=== PATIENT | female | born 1980 | race Caucasian/White ===

== ENCOUNTER → 2017-09-23 | Outpatient (CLI) | payer BC ==
[~2017-09-23] MED LIST: ETONMIS VAGRING; ONDA4TAB10 SL; OXYC-737 PO
--- NOTE | 2017-09-24 13:52 | MAMMOGRAPHY REPORT ---
BILATERAL FIRST EVER DIGITAL DIAGNOSTIC MAMMOGRAM TOMOSYNTHESIS WITH CAD AND TARGETED BILATERAL ULTRA SOUND: 09/23/2017 CLINICAL HISTORY: 37-year-old woman presents for diagnostic workup in both breasts after bilateral br east masses were incidentally identified on a CT performed of the abdomen and pelvis for nephrolithia sis. TECHNIQUE: Bilateral CC and MLO 2D and tomosynthesis images were obtained. Current study was also ev aluated with a Computer Aided Detection (CAD) system. COMPARISON: No prior exams were available for comparison. BREAST COMPOSITION: The tissue of both breasts is heterogeneously dense, which may obscure small mass es. FINDINGS: There are at least 3 circumscribed, gently lobulated masses in the left breast and at least one gently lobulated and circumscribed right breast mass. There is no evidence of a suspicious spic ulated or irregular mass, focal area of architectural distortion or suspicious calcification. No foc al skin thickening or nipple retraction. The dominant mass is located in the upper outer posterior l eft breast, measuring 14 x 18 x 17 mm. Targeted ultrasound was performed in the left breast first and an area of palpable concern pointed ou t by the patient which she has noticed for approximately 2 years. This is in the 12:00 left breast, 10 cm from the nipple and there is a gently lobulated circumscribed parallel hypoechoic solid mass me asuring 20 x 9 x 16 mm. This likely correlates with the dominant mammographic mass and probably repr esents a benign fibroadenoma given reported 2 years of stability based on palpation by the patient. A smaller similar appearing lobulated and circumscribed parallel hypoechoic solid mass is identified in the 12:00 left breast, 5 cm from the nipple, measuring 4 x 3 x 6 mm. Another gently lobulated cir cumscribed hypoechoic solid mass measuring 12 x 7 x 8 mm is identified in the 5:00 left breast, 6 cm from the nipple. No other discrete solid or cystic mass is seen in the left breast. There is a gently lobulated and circumscribed hypoechoic solid-appearing mass in the 6:00 right breas t, 11 cm from the nipple measuring 8 x 5 x 5 mm. Another gently lobulated and circumscribed hypoecho ic solid mass in the 12:00 right breast, 5 cm from the nipple measures 8 x 7 x 10 mm. The visualized bilateral masses correspond with the masses identified on recent CT and most likely al l represent benign fibroadenomas. As the masses are all probably benign, would recommend a follow-up targeted bilateral breast ultrasound in 6 months to ensure stability. Could consider further follow -up at the one-year [facility]ick including bilateral tomosynthesis mammograms and repeat targeted ultrasound. IMPRESSION: ACR-BI-RADS CATEGORY 3: PROBABLY BENIGN, ULTRASOUND ACR-BI-RADS CATEGORY 3: PROBABLY AMALIA GN 1. Bilateral breast masses incidentally identified on CT likely correspond with benign fibroadenomas identified mammographically and on ultrasound, with at least 3 solid benign-appearing masses seen in the left breast and 2 on the right. A six-month follow-up targeted bilateral breast ultrasound is r ecommended to ensure stability. These results and recommendations were discussed with the patient at the time of the exam. Some breast cancers are not detected with mammography. A negative mammographic report should not paramjit y biopsy if a clinically suggestive mass is present. Lexis Chacon M.D. ay/:09/23/2017 15:47:27 Freezer Laboratory Technician: Lexis Chacon, [facility]; Shaina Merino RT(R)(M), [facility] letter sent: Follow Up Recommended 3 OVERALL STUDY BIRADS: 3 Probably benign
== END | disposition home or self-care (01) ==
LOC: C.MAMM 12:43
PROVIDERS: ATTEND Family Medicine
DX: N63.10 Unspecified lump in the right breast, unspecified quadrant (principal); N63.20 Unspecified lump in the left breast, unspecified quadrant